=== PATIENT | female | born 1940 | race Caucasian/White ===

== ENCOUNTER 2019-03-31 10:17 | Day surgery (SDC) | payer MEDICARE ==
[~2019-03-31] VITALS: Ht 157.5 cm; Wt 70.5 kg
[2019-03-31 10:58] LABS: CALC OSMOLALITY 284 mosm/kg (275-300); CALCIUM 8.4 mg/dL (8.5-10.1); CARBON DIOXIDE 28.8 mmol/L (21.0-32.0); CHLORIDE - SERUM 105 mmol/L (98-107); CREATININE - SERUM 0.5 mg/dL (0.6-1.3); GLUCOSE 83 mg/dL (74-106); POTASSIUM - SERUM 3.3 mmol/L (3.5-5.1); SODIUM 141 mmol/L (136-145); UREA NITROGEN 26 mg/dL (7-18); eGFR NON AFRICAN AMERICAN > 90 mL/min (90-120)
[2019-03-31 11:04] LABS: HEMATOCRIT 34.5 % (36.0-48.0); HEMOGLOBIN 11.4 g/dL (12-16); MCH 30.1 pg (26.0-34.0); MEAN PLATELET VOLUME 10.4 fL (7.4-10.4); RBC 3.79 10x6/uL (4.00-5.40); WBC 6.2 10x3/uL (4.8-10.8)
[2019-03-31] MEDS ORDERED: OMEPRAZOLE40 MG PO (11:25)
[2019-03-31] MEDS ORDERED: KEFLEX500 MG PO (11:27)
[2019-03-31] MEDS ORDERED: TRAVATAN Z2.5 ML EACH EYE (11:28)
[2019-03-31] MEDS ORDERED: APRISO0.375 GM PO (11:29)
[2019-03-31] MEDS ORDERED: PEPTO-BISMOL262 M1 PO (11:30)
[2019-03-31] MEDS ORDERED: ENTOCORT EC3 MG PO (11:31)
[2019-03-31] MEDS ORDERED: CARAFATE1 G PO (11:32)
[2019-03-31] MEDS ORDERED: SYNTHROID88 MCG PO (11:32)
[2019-03-31 11:35] VITALS: BP 146/78; Ht 157.5 cm; Wt 70.5 kg
--- NOTE | 2019-04-09 09:35 | OP ---
PATIENT NAME: CALLIE GONZALEZ MEDICAL RECORD: [id number] :40 LOCATION:[facility] ADMISSION DATE: SURGEON: PADMA CANALES DO DATE OF OPERATION: 03/31/2019 PROCEDURE: EGD with fecal transplant. 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 SCOPE: Olympus video pediatric colonoscope. MEDICATIONS: Propofol 120 mg IV per anesthesia. ESTIMATED BLOOD LOSS: None. COMPLICATIONS: None. FINDINGS: Informed consent was given. The patient was made comfortable with the above medication. After reaching an adequate level of sedation by slow IV push, the endoscope was advanced through the mouth under direct visualization down to the jejunum. Once the jejunum was reached, 30 mL of [employer] stool was instilled through the endoscope into the small intestine. This was followed by 30 mL flush of sterile water. The maneuver was successful. The endoscope was withdrawn from the patient. The patient tolerated the procedure well and there were no complications. Appearances of the esophagus, stomach, and small intestine appeared within normal limits during this examination. 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 PLAN AND RECOMMENDATIONS: 1. Discharge home when recovery parameters are met. 2. Resume regular diet after 2 hours. 3. Return to clinic in 2-3 weeks to discuss symptoms and further management as indicated. TRANSINT:[id number] Voice Confirmation ID: [id number] DOCUMENT ID: [id number] PADMA CANALES DO at 0935 CC: [id number] DICTATION DATE: 03/31/19 1307 FULL STACK PYTHON DEVELOPER: 03/31/19 1343 [facility] 03/31/19 [place] [id number]
== END 2019-03-31 14:10 | disposition home or self-care (01) ==
LOC: D.OPS 10:17
PROVIDERS: Anesthesiology; ATTEND Internal Medicine Gastroenterology
DX: K52.832 Lymphocytic colitis (principal); Z01.812 Encounter for preprocedural laboratory examination